=== PATIENT | female | born 1995 | race Caucasian/White ===

== ENCOUNTER 2017-11-28 17:30 | Emergency (ER) | payer OTHER ==
[~2017-11-28] VITALS: Ht 170.2 cm; Wt 137.0 kg
[~2017-11-28 17:30] MED LIST: CLINDAMYCIN HC150 MG PO; LATUDA40 MG PO; LITHIUM CARBON600 MG PO; SEROQUEL25 MG PO; SEROQUEL300 MG PO; TRAZODONE HCL50 MG PO
--- NOTE | 2017-11-28 18:53 | Diagnostic Imaging Report ---
PROCEDURE: Frontal and lateral views of the chest. COMPARISON: None. INDICATIONS: CONGESTION/COUGH FINDINGS: Lines/tubes: None. Lungs: The lungs are well inflated and clear. There is no evidence of pneumonia or pulmonary edema. Pleura: There is no pleural effusion or pneumothorax. Heart and mediastinum: The heart and the mediastinum are normal. Bones: No acute bony abnormality. IMPRESSION: 1. No acute cardiopulmonary abnormalities. Dimitry Hendrickson M.D. Dictated by: Dimitry Hendrickson M.D. on 11/28/2017 at 19:02 Electronically approved by: Dimitry Hendrickson M.D. on 11/28/2017 at 19:02
[2017-11-28 19:19] LABS: STREPTOCOCCUS GRP A ANTIGEN NEGATIVE (NEGATIVE)
[2017-11-28 19:24] LABS: INFLUENZAE A&B ANTIGEN (RAPID) NEGATIVE (NEGATIVE)
[2017-11-28 20:18] VITALS: BP 132/81
== END 2017-11-28 20:30 | disposition home or self-care (01) ==
LOC: ER 17:30
DX: R50.9 Fever, unspecified (principal); R05 Cough; J20.9 Acute bronchitis, unspecified
CPT/HCPCS: 71020; 83518; 87070; 87400; 99283

== ENCOUNTER 2018-02-14 21:16 | Emergency (ER) | payer MEDICARE, OTHER ==
[~2018-02-14] VITALS: Ht 170.2 cm; Wt 140.6 kg
--- OUTSIDE RECORDS SUMMARY | 2018-02-14 21:19 | XMS REPORT ---
Author Author [facility] Address Unknown Phone Unavailable Care Team Providers Care Trust Administrator Name Role Phone JOSE D PRESTON Unavailable Unavailable Problems This patient has no known problems. Allergies, Adverse Reactions, Alerts This patient has no known allergies or adverse reactions. Medications This patient has no known medications. Encounters Start Date/Time End Date/Time Encounter Type Admission Type Attending Clinicians Care Facility Care Department Encounter ID 2017-12-31 00:00:00 2017-12-31 00:00:00 Outpatient [id number] Results Test Description Test Time Test Comments Text Results Atomic Results Result Comments CHEST 2 VIEWS [place] [address] Patient Name: DEE GASTELUM MR #: [id number] : 1995 Age/Sex: 21/F Req #: [id number] Adm Physician: Ordered by: JOSE D PRESTON MD Report #: [id number] Location: ER Room/Bed: Procedure: [id number] DX/CHEST 2 VIEWS Exam Date: 11/28/17 Exam Time: 1824 REPORT STATUS: Signed PROCEDURE: Frontal and lateral views of the chest. COMPARISON: None. INDICATIONS: CONGESTION/COUGH FINDINGS: Lines/tubes: None. Lungs: The lungs are well inflated and clear. There is no evidence of pneumonia or pulmonary edema. Pleura: There is no pleural effusion or pneumothorax. Heart and mediastinum: The heart and the mediastinum are normal. Bones: No acute bony abnormality. IMPRESSION: 1. No acute cardiopulmonary abnormalities. Dequan Sauceda M.D. Dictated by : Dequan Sauceda M.D. on 11/28/2017 at 19:02 Electronically approved by: Dequan Sauceda M.D. on 11/28/2017 at 19:02 Dictated By: DEQUAN SAUCEDA MD 01 Transcribed By: JAYNA on 11/28/171901 COPY TO: JOSE D PRESTON MD
== END 2018-02-14 22:00 | disposition left against medical advice (07) ==
LOC: ER 21:16
DX: L02.818 Cutaneous abscess of other sites (principal)

== ENCOUNTER 2018-02-16 23:29 | Emergency (ER) | payer MEDICARE, OTHER ==
[~2018-02-16] VITALS: Ht 170.2 cm; Wt 142.9 kg
--- OUTSIDE RECORDS SUMMARY | 2018-02-16 23:32 | XMS REPORT | Continuity of Care Document ---
Author Author [facility] Organization [facility] Address [address] [place] [address] Phone Unavailable Care Team Providers Care Jewel Hole Cornerer Name Role Phone NONSTAFF PCP Unavailable Insurance Providers Guarantor Dee Mccauley Address [address] [place] [address] Email [email or web address] Payer [employer] Policy Number [id number] Subscriber's Name GarrickDee Bahenaeen Relationship 18 Self / Same As Patient Effective Date 17 Advance Directives Directive Response Recorded Date/Time Does the patient have an advance directive? No 09/01/17 2:50pm If yes, is advance directive on file with [facility]? No 09/01/17 2:50pm If not on file with [facility] will patient provide a copy? No 09/01/17 2:50pm Problems Medical Problem Onset Date Status Cellulitis Unknown Medications Current Home Medications Medication Dose Units Route Directions Days Qty Instructions Start Date Clindamycin Hcl 150 Mg Capsule Mg Oral Four Times Daily Lurasidone Hcl (Latuda) 40 Mg Tablet 40 Mg Oral Bedtime Trazodone Hcl 50 Mg Tablet 100 Mg Oral Bedtime 30 Tab Past Home Medications Medication Directions Ordered Status [place] Carbonate 600 Mg Capsule, 600 Mg Oral Twice A Day Discontinued Quetiapine Fumarate (Seroquel) 25 Mg Tablet, 25 Mg Oral Before Breakfast Discontinued Quetiapine Fumarate (Seroquel) 300 Mg Tablet, 300 Mg Oral Bedtime Discontinued Social History Social History Problem Response Recorded Date/Time Onset Date Status Hx Psychiatric Problems Y - Bipolar 09/01/2017 2:50pm Not Applicable Not Applicable Hx Eating Disorder No 09/01/2017 2:50pm Not Applicable Not Applicable Hx Substance Use Disorder No 09/01/2017 2:50pm Not Applicable Not Applicable Hx Depression Yes 09/01/2017 2:50pm Not Applicable Not Applicable Hx Alcohol Use No 09/01/2017 2:50pm Not Applicable Not Applicable Hx Substance Use Treatment No 09/01/2017 2:50pm Not Applicable Not Applicable Hx Physical Abuse No 09/01/2017 2:50pm Not Applicable Not Applicable Hospital Discharge Instructions No hospital discharge instruction information available. Plan of Care Discharge Date 02/14/18 10:00pm Disposition ELOPED Condition at Discharge Stable Instructions/Education Provided Rash - Nonspecific Forms Provided Work/School Excuse Prescriptions See Medication Section Functional Status No functional status information available. Allergies, Adverse Reactions, Alerts Allergen Type Severity Reaction Status Last Updated pepper (genus Capsicum) Allergy Unknown Active 09/01/17 coconut Allergy Unknown Active 09/01/17 Immunizations No immunization information available. Vital Signs Acute Vital Signs Vital Response Date/Time Temperature (Fahrenheit) 99.0 degrees F (97.6 - 99.5) 11/28/2017 8:18pm Pulse Pulse Rate (adult) 101 bpm (60 - 90) 11/28/2017 8:18pm Respiratory Rate 16 bpm (12 - 24) 11/28/2017 8:18pm Blood Pressure 132/81 mm Hg 11/28/2017 8:18pm Height 5 ft 7 in 02/14/2018 9:28pm Weight 310 lb 02/14/2018 9:28pm Body Mass Index 48.6 kg/m^2 02/14/2018 9:28pm Results Laboratory Results Test Name Result Units Flags Reference Collection Date/Time Result Date/ Time Comments White Blood Count 9.11 x10e3/uL 4.8-10.8 09/04/2017 5:55am 09/04/2017 6 :33am Red Blood Count 4.94 x10e6/uL 3.6-5.1 09/04/2017 5:55am 09/04/2017 6: 33am Hemoglobin 13.4 g/dL 12.0-16.0 09/04/2017 5:55am 09/04/2017 6:33am Hematocrit 40.6 % 34.2-44.1 09/04/2017 5:55am 09/04/2017 6:33am Mean Corpuscular Volume 82.2 fL 81-99 09/04/2017 5:55am 09/04/2017 6: 33am Mean Corpuscular Hemoglobin 27.1 pg L 28-32 09/04/2017 5:55am 2016 6:33am Mean Corpuscular Hemoglobin Concent 33.0 g/dL 31-35 09/04/2017 5:55am 09/04/2017 6:33am Red Cell Distribution Width 13.3 % 11.7-14.4 09/04/2017 5:55am 2016 6:33am Platelet Count 342 x10e3/uL 140-360 09/04/2017 5:55am 09/04/2017 6: 33am Neutrophils (%) (Auto) 46.8 % 38.7-80.0 09/04/2017 5:55am 09/04/2017 6: 33am Lymphocytes (%) (Auto) 38.3 % 18.0-39.1 09/04/2017 5:55am 09/04/2017 6: 33am Monocytes (%) (Auto) 10.1 % 4.4-11.3 09/04/2017 5:55am 09/04/2017 6: 33am Eosinophils (%) (Auto) 3.4 % 0.0-6.0 09/04/2017 5:55am 09/04/2017 6: 33am Basophils (%) (Auto) 0.4 % 0.0-1.0 09/04/2017 5:55am 09/04/2017 6:33am IM GRANULOCYTES % 1.0 % 0.0-1.0 09/04/2017 5:55am 09/04/2017 6:33am Neutrophils # (Auto) 4.3 2.1-6.9 09/04/2017 5:55am 09/04/2017 6:33am Lymphocytes # (Auto) 3.5 H 1.0-3.2 09/04/2017 5:55am 09/04/2017 6: 33am Monocytes # (Auto) 0.9 H 0.2-0.8 09/04/2017 5:55am 09/04/2017 6:33am Eosinophils # (Auto) 0.3 0.0-0.4 09/04/2017 5:55am 09/04/2017 6:33am Basophils # (Auto) 0.0 0.0-0.1 09/04/2017 5:55am 09/04/2017 6:33am Absolute Immature Granulocyte (auto 0.09 x10e3/uL 0-0.1 09/04/2017 5: 55am 09/04/2017 6:33am Urine Color YELLOW YELLOW 09/01/2017 11:00am 09/01/2017 11:40am Urine Clarity CLOUDY H CLEAR 09/01/2017 11:00am 09/01/2017 11:40am Urine Specific [place] 1.015 1.010-1.025 09/01/2017 11:00am 2016 11:40am Urine pH 6 5 - 7 09/01/2017 11:00am 09/01/2017 11:40am Urine Leukocyte Esterase 1+ H NEGATIVE 09/01/2017 11:00am 09/01/2017 11:40am Urine Nitrite NEGATIVE NEGATIVE 09/01/2017 11:00am 09/01/2017 11: 40am Urine Protein NEGATIVE NEGATIVE 09/01/2017 11:00am 09/01/2017 11: 40am Urine Glucose (UA) NEGATIVE NEGATIVE 09/01/2017 11:00am 09/01/2017 11 :40am Urine Ketones NEGATIVE NEGATIVE 09/01/2017 11:00am 09/01/2017 11: 40am Urine Urobilinogen 0.2 mg/dL 0.2 - 1 09/01/2017 11:00am 09/01/2017 11: 40am Urine Bilirubin NEGATIVE NEGATIVE 09/01/2017 11:00am 09/01/2017 11: 40am Urine Blood TRACE H NEGATIVE 09/01/2017 11:00am 09/01/2017 11:40am Urine WBC 0-5 /HPF 0-5 09/01/2017 11:00am 09/01/2017 12:01pm Urine RBC 0-5 /HPF 0-5 09/01/2017 11:00am 09/01/2017 12:01pm Urine Bacteria FEW /HPF NONE 09/01/2017 11:00am 09/01/2017 12:01pm Urine Epithelial Cells FEW /LPF NONE 09/01/2017 11:00am 09/01/2017 12: 01pm Sodium Level 140 mmol/L 136-145 09/04/2017 5:55am 09/04/2017 6:59am Potassium Level 4.2 mmol/L 3.5-5.1 09/04/2017 5:55am 09/04/2017 6:59am Chloride Level 109 mmol/L H 98-107 09/04/2017 5:55am 09/04/2017 6:59am Carbon Dioxide Level 21 mmol/L L 22-29 09/04/2017 5:55am 09/04/2017 6: 59am Anion Gap 14.2 mmol/L 8-16 09/04/2017 5:55am 09/04/2017 6:59am Blood Urea Nitrogen 10 mg/dL 7-09/04/2017 5:55am 09/04/2017 6:59am Creatinine 0.71 mg/dL 0.57-1.11 09/04/2017 5:55am 09/04/2017 6:59am BUN/Creatinine Ratio 14 6-25 09/04/2017 5:55am 09/04/2017 6:59am Estimat Glomerular Filtration Rate > 60 ML/MIN 60- 09/04/2017 5:55am 6:59am Ranges were taken from the National Kidney Disease Education Program and the National Kidney Foundation literature. Reference ranges: 60 or greater: Normal 16-59 (for 3 consecutive months): Chronic kidney disease 15 or less: Kidney failure Glucose Level 110 mg/dL 74-118 09/04/2017 5:55am 09/04/2017 6:59am Calcium Level 8.7 mg/dL 8.4-10.2 09/04/2017 5:55am 09/04/2017 6:59am Total Bilirubin 0.4 mg/dL 0.2-1.2 09/01/2017 11:00am 09/01/2017 11: 55am Aspartate Amino Transf (AST/SGOT) 15 IU/L 5-34 09/01/2017 11:00am 09/01 11:55am Alanine Aminotransferase (ALT/SGPT) 19 IU/L 0-55 09/01/2017 11:00am 12/2016 11:55am Total Protein 7.3 g/dL 6.5-8.1 09/01/2017 11:00am 09/01/2017 11:55am Albumin 3.7 g/dL 3.5-5.0 09/01/2017 11:00am 09/01/2017 11:55am Globulin 3.6 g/dL H 2.3-3.5 09/01/2017 11:00am 09/01/2017 11:55am Albumin/Globulin Ratio 1.0 0.8-2.0 09/01/2017 11:00am 09/01/2017 11: 55am Alkaline Phosphatase 70 IU/L 40-150 09/01/2017 11:00am 09/01/2017 12: 43pm Influenza Virus Types A,B Antigen NEGATIVE NEGATIVE 11/28/2017 6:00pm 11/28/2017 7:24pm Group A Streptococcus Screen NEGATIVE NEGATIVE 11/28/2017 6:00pm 7:19pm Microbiology Results Procedure Source Organism/Result Collection Date/Time Result Date/Time Result Status Blood Culture Blood NO GROWTH AFTER 5 DAYS, FINAL REPORT 09/01/2017 11: 00am 09/06/2017 11:24am Final Procedures Procedure Status Date Provider(s) X-ray of chest, two views Active 11/28/17 JOSE D PRESTON MD Encounters Encounter Location Arrival/Admit Date Discharge/Depart Date Attending Provider Departed Emergency Room [facility] 02/14/18 9:16pm 10:00pm FORD ANGELES MD Departed Emergency Room [facility] 11/28/17 5:30pm 8:30pm FORD ANGELES MD Discharged Inpatient (obs) [facility] 09/01/17 11:50am 12:52pm HUY SWAIN MD
[2018-02-16 23:48] VITALS: BP 119/72
[2018-02-16] MEDS ORDERED: BACTRIM DS TAB1 EACH PO (23:53)
== END 2018-02-16 23:58 | disposition home or self-care (01) ==
LOC: FSED 23:29
DX: L02.213 Cutaneous abscess of chest wall (principal); L03.313 Cellulitis of chest wall; F31.9 Bipolar disorder, unspecified; E28.2 Polycystic ovarian syndrome
CPT/HCPCS: 99282

== ENCOUNTER 2018-03-13 18:17 | Emergency (ER) | payer MEDICARE, OTHER ==
[~2018-03-13] VITALS: Ht 170.2 cm; Wt 142.9 kg
[~2018-03-13 18:17] MED LIST changes: +BACTRIM DS TAB1 EACH PO
--- OUTSIDE RECORDS SUMMARY | 2018-03-13 18:20 | XMS REPORT | Continuity of Care Document ---
Author Author [facility] Organization [facility] Address [address] [place] [address] Phone Unavailable Care Team Providers Care Civil Division Deputy Sheriff Name Role Phone NONSTAFF PCP Unavailable Insurance Providers Guarantor Dee Mccauley Address [address] [place] [address] Email [email or web address] Payer [employer] Policy Number [id number] Subscriber's Name Dee Mccauley Relationship 18 Self / Same As Patient Group Number [id number] Group Name [place] MEDICA[place] Effective Date 17 Advance Directives Directive Response Recorded Date/Time Does the patient have an advance directive? No 09/01/17 2:50pm If yes, is advance directive on file with [facility]? No 09/01/17 2:50pm If not on file with [facility] will patient provide a copy? No 09/01/17 2:50pm Problems Medical Problem Onset Date Status Cellulitis Unknown Medications Current Home Medications Medication Dose Units Route Directions Days Qty Instructions Start Date Clindamycin Hcl 150 Mg Capsule Mg Oral Four Times Daily Lurasidone Hcl (Latuda) 40 Mg Tablet 40 Mg Oral Bedtime Sulfamethoxazole/Trimethoprim (Bactrim Ds Tablet) 1 Each Tablet 1 Tab Oral Twice A Day 20 Tab 02/16/18 Trazodone Hcl 50 Mg Tablet 100 Mg Oral Bedtime 30 Tab Past Home Medications Medication Directions Ordered Status [place] Carbonate 600 Mg Capsule, 600 Mg Oral [...] No 09/01/2017 2:50pm Not Applicable Not Applicable Smoking Status Start Date Stop Date Current every day smoker Hospital Discharge Instructions No hospital discharge instruction information available. Plan of Care Discharge Date 02/16/18 11:58pm Disposition HOME, SELF-CARE Condition at Discharge Stable Instructions/Education Provided Skin Abscess Prescriptions See Medication Section Referrals NONSTAFF Additional Instructions/Education Schedule an appt with your PCP in 1 week for re-evaluation and to get referral for surgical removal of underlying cyst. Functional Status No functional status information available. Allergies, Adverse Reactions, Alerts Allergen Type Severity Reaction Status Last Updated pepper (genus Capsicum) Allergy Unknown Active 09/01/17 coconut Allergy Unknown Active 09/01/17 Immunizations No immunization information available. Vital Signs Acute Vital Signs Vital Response Date/Time Temperature (Fahrenheit) 97.4 degrees F (97.6 - 99.5) 02/16/2018 11:48pm Pulse Pulse Rate (adult) 110 bpm (60 - 90) 02/16/2018 11:48pm Respiratory Rate 20 bpm (12 - 24) 02/16/2018 11:48pm Blood Pressure 119/72 mm Hg 02/16/2018 11:48pm Height 5 ft 7 in 02/16/2018 11:40pm Weight 315 lb 02/16/2018 11:40pm Body Mass Index 49.3 kg/m^2 02/16/2018 11:40pm Results Laboratory Results Test Name Result Units [...] CLEAR 09/01/2017 11:00am 09/01/2017 11:40am Urine Specific [place] 1.015 1.010-1.025 09/01/2017 11:00am 2016 11:40am Urine [...] Discharge/Depart Date Attending Provider Departed [facility] 02/16/18 11:29pm 02/16 11:58pm KYLER BEAULIEU MD Departed Emergency [facility] 02/14/18 9:16pm 10:00pm FORD ANGELES MD [facility] Emergency [facility] 11/28/17 5:30pm 8:30pm FORD ANGELES MD Discharged Inpatient (obs) [facility] 09/01/17 11:50am 12:52pm HUY SWAIN MD
[2018-03-13] MEDS ORDERED: ALBUTEROL/IPRATROPIUM 3 ML NEB NEB ONE (18:45)
[2018-03-13 20:27] VITALS: BP 125/72
== END 2018-03-13 20:15 | disposition home or self-care (01) ==
LOC: ER 18:17 → FSED 20:15
DX: J20.9 Acute bronchitis, unspecified (principal); R19.7 Diarrhea, unspecified; F17.210 Nicotine dependence, cigarettes, uncomplicated; E66.9 Obesity, unspecified; E28.2 Polycystic ovarian syndrome; Z91.018 Allergy to other foods
CPT/HCPCS: 71046; 85025; 99283

== ENCOUNTER 2018-04-17 19:18 | Emergency (ER) | payer MEDICARE, OTHER ==
[~2018-04-17] VITALS: Ht 170.2 cm; Wt 142.9 kg
--- OUTSIDE RECORDS SUMMARY | 2018-04-17 19:22 | XMS REPORT | Continuity of Care Document ---
Author Author [facility] Organization [facility] Address [address] [place] [address] Phone Unavailable Care Team Providers Care Reproduction Machine Loader Name Role Phone NONSTAFF PCP Unavailable Insurance Providers Guarantor Dee Mccauley Address [address] [place] [address] Email [email or web address] Payer Medicare A & B Policy Number [id number] Subscriber's Name Dee Mccauley Relationship 18 Self / Same As Patient Group Number [id number] Group Name UNEMPLOYED Effective Date 17 Payer [employer] Policy Number [id number] Subscriber's Name Dee Mccauley Kelsie Relationship 18 Self / Same As Patient Group Number [id number] Group Name UNEMPLOYED Effective Date 17 Payer [employer] Policy Number [id number] Subscriber's Name Dee Mccauley Relationship 18 Self / Same As Patient Group Number [id number] Effective Date 17 Advance Directives Directive Response Recorded Date/Time Does the patient have an advance directive? No 09/01/17 2:50pm If yes, [facility] No 03/13/18 6:55pm If not on file with [facility] will patient provide a copy? No 03/13/18 6:55pm Do you have a Directive to Physician? No 03/13/18 6:55pm Do you have a Medical Power of Calculation Clerk? No 03/13/18 6:55pm Do you have an out of hospital Do Not Resuscitate Order? No 03/13/18 6:55pm Do you have any special needs we should be aware of? No 03/13/18 6:55pm Do you have a support person here with you today? No 03/13/18 6:55pm Did patient receive Notice of Privacy Practices? Yes 03/13/18 6:55pm Did patient receive patient rights and responsibilities? Yes 03/13/18 6:55pm Problems Medical Problem Onset Date Status Cellulitis [...] Past Home Medications Medication Directions Ordered Status [place] Carbonate 600 Mg Capsule, 600 Mg Oral [...] information available. Plan of Care Discharge Date 03/13/18 8:15pm Disposition HOME, SELF-CARE Condition at Discharge Stable Instructions/Education Provided Bronchitis (Acute) - Adult Prescriptions See Medication Section Referrals Sharon Ibarra Additional Instructions/Education Discussed with patient about working diagnosis of bronchitis with treatment plan and medical therapy. Recommend FOLLOW UP with MD in 2-4 days for recheck. Proceed to a hospital ER if symptoms worsen with high fever, vomiting, or shortness of breath and chest pain. Functional Status No functional status information available. Allergies, Adverse Reactions, Alerts Allergen Type Severity Reaction Status Last Updated pepper (genus Capsicum) Allergy Unknown Active 09/01/17 coconut Allergy Unknown Active 09/01/17 Immunizations No immunization information available. Vital Signs Acute Vital Signs Vital Response Date/Time Temperature (Fahrenheit) 98.0 degrees F (97.6 - 99.5) 03/13/2018 8:27pm Pulse Pulse Rate (adult) 100 bpm (60 - 90) 03/13/2018 8:27pm Respiratory Rate 16 bpm (12 - 24) 03/13/2018 8:27pm Blood Pressure 125/72 mm Hg 03/13/2018 8:27pm Height 5 ft 7 in 03/13/2018 6:45pm Weight 315 lb 03/13/2018 6:45pm Body Mass Index 49.3 kg/m^2 03/13/2018 6:45pm Results Laboratory Results Test Name Result Units [...] CLEAR 09/01/2017 11:00am 09/01/2017 11:40am Urine Specific [place] 1.015 1.010-1.025 09/01/2017 11:00am 2016 11:40am Urine [...] 09/04/2017 6:59am Blood Urea Nitrogen 10 mg/dL 7-26 09/04/2017 5:55am 09/04/2017 6:59am Creatinine 0.71 mg/dL 0.57-1.11 [...] Provider Departed [facility] 03/13/18 6:17pm 8:15pm FORD CASIANO MD Departed Emergency [facility] 02/16/18 11:29pm 02/16 11:58pm KYLER BEAULIEU MD Departed Emergency [facility] 02/14/18 9:16pm 10:00pm FORD ANGELES MD [facility] 11/28/17 5:30pm 8:30pm FORD ANGELES MD Discharged Inpatient (obs) [facility] 09/01/17 11:50am 12:52pm HUY SWAIN MD
== END 2018-04-17 23:12 | disposition left against medical advice (07) ==
LOC: ER 19:18
DX: L03.311 Cellulitis of abdominal wall (principal)

== ENCOUNTER 2019-01-04 20:18 | Emergency (ER) | payer MEDICARE, OTHER ==
[~2019-01-04] VITALS: Ht 170.2 cm; Wt 142.9 kg
--- OUTSIDE RECORDS SUMMARY | 2019-01-04 20:21 | XMS REPORT | Continuity of Care Document ---
Author Author [facility] Interface Address Unknown Phone Unavailable Problems Problem Status Onset Date Classification Date Reported Comments Source Pelvic and perineal pain 01/23/2018 04/25/2018 [facility] R10.2 Active 01/17/2018 [facility] Discharge Diagnosis: Local infection of the skin and subcutaneous tissue, unspecified 08/03/2017 08/06/2017 [facility] ABSCESS Active 08/03/2017 [facility] Discharge Diagnosis: Pharyngitis 01/26/2017 01/29/2017 [facility] THROAT PAIN Active 01/25/2017 [facility] Abnormal radiologic findings on diagnostic imaging of renal pelvis, ureter, or bladder 04/25/2018 [facility] PELVIC AND PERINEAL PAIN Active [facility] Medications Medication Details Route Status Patient Instructions Ordering Provider Order Date Source Acetaminophen 300 MG / Codeine Phosphate 30 MG Oral Tablet [Tylenol with Codeine #3] 1 - 2 tab, PO, Q4H, PRN Pain, X 2 day, # 12 tab, 0 Refill(s) No Longer Active 08/03/2017 [facility] Cephalexin 500 MG Oral Capsule [Keflex] 500 mg=1 cap, PO, QID, X 7 day, # 28 cap, 0 Refill(s) Active 08/03/2017 [facility] ibuprofen 800 mg oral tablet 800 mg=1 tab, PO, Q8H, PRN Fever or Pain, Take with food, X 10 day, # 30 tab, 0 Refill(s) Active 01/26/2017 [facility] Penicillin V Potassium 500 MG Oral Tablet 500 mg=1 tab, PO, Q8H, X 10 day, # 30 tab, 0 Refill(s) Active 01/26/2017 [facility] Allergies, Adverse Reactions, Alerts Substance Category Reaction Severity Reaction type Status Date Reported Comments Source Other Food Allergy<sup>1</sup> Assertion Drug allergy Active coconut ambriz pepper [facility] Immunizations Immunization Date Given Site Status Last Updated Comments Source Results Order Name Results Value Reference Range Date Interpretation Comments Source Pelvis w Pelvis Transvaginal US Pelvis w Pelvis Transvaginal US Patient Name: DEE GASTELUM : 1995; Age: 22 years y/o Female MR: [id number] Study: Pelvis w Pelvis Transvaginal US dated 01/17/2018. Clinical Indication: - ovarian cysts.; Comparison: None Endovaginal ultrasound was performed for better evaluation of the endometrial stripe and adnexal regions. Transabdominal and endovaginal ultrasound of the pelvis: Slight prominence of the jansen of the bladder may be due to bladder not being well distended but mild nonspecific cystitis cannot be excluded. The uterus measures 5.9 x 3.2 x 4.4 cm. The endometrial stripe measures 3.6 mm in full width thickness. Uterus sonographically unremarkable. Right ovary sonographically normal measuring 3.9 x 1.8 x 2.3 cm. Left ovary sonographically normal measuring 4.2 x 2.1 x 2.3 cm. No free fluid identified in the pelvis. No adnexal masses identified bilaterally. CONCLUSIONS: 1. Uterus and both ovaries sonographically unremarkable. 2. No free fluid in the pelvis. 3. Slight thickening of the bladder jansen may be due to bladder not being well distended but mild nonspecific cystitis cannot be excluded. SL: [email or web address]-ERINN 01/17/2018 - - Read by: Rock Garcia MD Dictated Date/time: 01/17/18 21:40 Electronically Signed by: Rock Garcia MD 01/17/18 21:46 FINAL REPORT [facility] RAPID Grp A Strep Scr Negative (01/25/17 11:21 PM) Negative 01/26/2017 [facility] Vital Signs Vital Sign Value Date Comments Source Heart Rate 92 08/03/2017 [facility] Respitory Rate 18 08/03/2017 [facility] Systolic (mm Hg) 134 08/03/2017 [facility] Diastolic (mm Hg) 83 08/03/2017 [facility] Temperature Oral (F) 98.7 F 08/03/2017 [facility] Height 170.18 cm 08/03/2017 [facility] Weight 131.818 08/03/2017 [facility] BMI Calculated 45.52 08/03/2017 [facility] Respitory Rate 18 08/03/2017 [facility] Heart Rate 90 08/03/2017 [facility] Systolic (mm Hg) 145 08/03/2017 [facility] Diastolic (mm Hg) 84 08/03/2017 [facility] Temperature Oral (F) 99 F 08/03/2017 [facility] Temperature Oral (F) 98.5 F 01/26/2017 [facility] Systolic (mm Hg) 135 01/26/2017 [facility] Diastolic (mm Hg) 52 01/26/2017 [facility] Respitory Rate 79 01/26/2017 [facility] Diastolic (mm Hg) 88 01/26/2017 [facility] Respitory Rate 80 01/26/2017 [facility] Temperature Oral (F) 98.6 F 01/26/2017 [facility] Systolic (mm Hg) 137 01/26/2017 [facility] Weight 131.818 01/26/2017 [facility] BMI Calculated 45.52 01/26/2017 [facility] Height 170.18 cm 01/26/2017 [facility] Temperature Oral (F) 98.4 F 01/26/2017 [facility] Heart Rate 80 01/26/2017 [facility] Respitory Rate 20 01/26/2017 [facility] Systolic (mm Hg) 136 01/26/2017 [facility] Diastolic (mm Hg) 85 01/26/2017 [facility] Encounters Location Location Details Encounter Type Encounter Number Reason For Visit Attending Provider ADM Date DC Date Status Source [facility] Emergency [id number] Malcolm Chiu 01/26/2017 01/26/2017 [facility] Emergency [id number] Kerry Naidu 08/03/2017 08/03/2017 [facility] Outpatient [id number] Spencer aRshid 01/17/2018 01/18/2018 [facility] Procedures Procedure Code Date Perfomer Comments Source
--- OUTSIDE RECORDS SUMMARY | 2019-01-04 20:21 | XMS REPORT | Summary of Care ---
Author Author [facility] Address Unknown Phone Unavailable Encounter HORTENCIA Gayle(PING) [id number] Date(s): 01/25/17 - 01/26/17 [facility] [address] [place] [address]- Discharge Diagnosis: Pharyngitis Discharge Disposition: Home or Self Care Attending Physician: Malcolm Chiu MD Vital Signs 1 2 3 Most recent to oldest [Reference Range]: 170.18 cm (01/25/17 11:10 PM) Height 98.5 DegF (01/26/17 2:39 AM) 98.6 DegF (01/26/17 1:30 AM) 98.4 DegF (01/25/17 11:10 PM) Temperature Oral [96.4-99.1 DegF] 136/85 mmHg (01/25/17 11:10 PM) Blood Pressure [90-140/60-90 mmHg] 135 mmHg (01/26/17 2:39 AM) 137 mmHg (01/26/17 1:30 AM) Systolic Blood Pressure [90-140 mmHg] 52 mmHg *LOW* (01/26/17 2:39 AM) 88 mmHg (01/26/17 1:30 AM) Diastolic Blood Pressure [60-90 mmHg] 79 BRMIN *HI* (01/26/17 2:39 AM) 80 BRMIN *HI* (01/26/17 1:30 AM) 20 BRMIN (01/25/17 11:10 PM) Respiratory Rate [14-20 BRMIN] 80 bpm (01/25/17 11:10 PM) Peripheral Pulse Rate [60-100 bpm] 131.818 kg (01/25/17 11:10 PM) Weight 45.52 m2 (01/25/17 11:10 PM) Body Mass Index Problem List No data available for this section Allergies, Adverse Reactions, Alerts Substance Reaction Severity Status Other Food Allergy1 Active 1coconut ambriz pepper Medications ibuprofen 800 mg oral tablet 800 mg=1 tab, PO, Q8H, PRN Fever or Pain, Take with food, X 10 day, # 30 tab, 0 Refill(s) Start Date: 01/26/17 Stop Date: 02/05/17 Status: Ordered penicillin V potassium 500 mg oral tablet 500 mg=1 tab, PO, Q8H, X 10 day, # 30 tab, 0 Refill(s) Start Date: 01/26/17 Stop Date: 02/05/17 Status: Ordered Results RAPID Most recent to 1 oldest [Reference Range]: Grp A Strep Scr Negative [Negative] (01/25/17 11:21 PM) Immunizations No data available for this section Procedures No data available for this section Social History Social History Type Response Smoking Status Never smoker; Ready to change: No; Concerns about tobacco use in household: No; Exposure to Tobacco Smoke None; Cigarette Smoking Last 365 Days No; Reg Smoking Cessation Counseling No Assessment and Plan No data available for this section
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
--- OUTSIDE RECORDS SUMMARY | 2019-01-04 20:21 | XMS REPORT | Summary of Care ---
Author Author [facility] Organization [facility] Address Unknown Phone Unavailable Encounter [facility] [place](FIN) [id number] Date(s): 01/17/18 - 01/17/18 [facility] [address] [place] [address]- [phone] Encounter Diagnosis Pelvic and perineal pain (Final) - 01/22/18 Abnormal radiologic findings on diagnostic imaging of renal pelvis, ureter, or b ladder (Final) - Discharge Disposition: Home or Self Care Attending Physician: Spencer Rashid MD Referring Physician: Spencer Rashid MD Vital Signs No data available for this section Problem List No data available for this section Allergies, Adverse Reactions, Alerts Substance Reaction Severity Status Other Food Allergy1 Active 1coconut ambrzi pepper Medications No data available for this section Results No data available for this section Immunizations No data available for this section Procedures No data available for this section Social History Social History Type Response Smoking Status Never smoker; Ready to change: No; Concerns about tobacco use in household: No; Exposure to Tobacco Smoke None; Cigarette Smoking Last 365 Days No; Reg Smoking Cessation Counseling No entered on: 08/03/17 Assessment and Plan No data available for this section
--- OUTSIDE RECORDS SUMMARY | 2019-01-04 20:21 | XMS REPORT | Summary of Care ---
Author Author [facility] Organization [facility] Address Unknown Phone Unavailable Encounter HORTENCIA Gayle(PING) [id number] Date(s): 08/03/17 - 08/03/17 [facility] [address] [place] [address]- [phone] Discharge Diagnosis: Local infection of the skin and subcutaneous tissue, unspec ified Discharge Disposition: Home or Self Care Attending Physician: Kerry Naidu MD Vital Signs Most recent to 1 2 oldest [Reference Range]: Height 170.18 cm (08/03/17 2:46 PM) Temperature Oral 98.7 DegF 99 DegF [96.4-99.1 DegF] (08/03/17 4:54 PM) (08/03/17 2:46 PM) Blood Pressure 134/83 mmHg 145/84 mmHg [90-140/60-90 mmHg] (08/03/17 4:54 PM) *HI* (08/03/17 2:46 PM) Respiratory Rate 18 BRMIN 18 BRMIN [14-20 BRMIN] (08/03/17 4:54 PM) (08/03/17 2:46 PM) Peripheral Pulse 92 bpm 90 bpm Rate [60-100 bpm] (08/03/17 4:54 PM) (08/03/17 2:46 PM) Weight 131.818 kg (08/03/17 2:46 PM) Body Mass Index 45.52 m2 (08/03/17 2:46 PM) Problem List No data available for this section Allergies, Adverse Reactions, Alerts Substance Reaction Severity Status Other Food Allergy1 Active 1coconut ambriz pepper Medications Keflex 500 mg oral capsule 500 mg=1 cap, PO, QID, X 7 day, # 28 cap, 0 Refill(s) Start Date: 08/03/17 Stop Date: 08/10/17 Status: Ordered Tylenol with Codeine #3 oral tablet 1 - 2 tab, PO, Q4H, PRN Pain, X 2 day, # 12 tab, 0 Refill(s) Start Date: 08/03/17 Stop Date: 08/05/17 Status: Completed Results No data available for this section [...]
[2019-01-04] MEDS ORDERED: IPRATROPIUM BROMIDE 0.02% 2.5 ML NEB NEB STA (20:27)
[2019-01-04] MEDS ORDERED: ALBUTEROL SULF 0.083% NEB SOLN 3 ML NEB NEB STA (20:27)
[2019-01-04] MEDS ORDERED: ACETAMINOPHEN/CODEINE ELIX 120-12 MG/5 ML UDC PO ONE (20:30)
[2019-01-04] MEDS ORDERED: LEVALBUTEROL HCL SOLN NEBU 1.25 MG/3 ML NEB INH ONE (21:00)
--- NOTE | 2019-01-04 21:51 | Diagnostic Imaging Report ---
CHEST 2 VIEWS, Technique: CHEST 2 VIEWS Comparison: 11/28/2017 Clinical history: Cough DISCUSSION: Overlying soft tissue attenuation. Stable cardiomediastinal silhouette. Mild bibasilar vascular crowding. No consolidation, effusion or pneumothorax. IMPRESSION: No acute abnormality Signed by: Dr Marisol Mills MD on 01/04/2019 9:48 PM
[2019-01-04] MEDS: DEXAMETHASONE SOD PHOS 10 MG/1 ML VIAL IM ONE ×2 (23:19→23:20)
== END 2019-01-04 23:30 | disposition home or self-care (01) ==
LOC: ER 20:18
DX: R05 Cough (principal); J20.9 Acute bronchitis, unspecified; R51 Headache; I10 Essential (primary) hypertension; E11.9 Type 2 diabetes mellitus without complications; F31.9 Bipolar disorder, unspecified; E28.2 Polycystic ovarian syndrome
CPT/HCPCS: 71046; 94640; 99283; J1100